=== PATIENT | female | born 1945 | race Caucasian/White ===

== ENCOUNTER 2020-12-01 10:28 | Inpatient (IN) | payer MEDICARE, BC ==
[~2020-12-01] VITALS: Ht 160 cm; Wt 67.0 kg
[2020-12-01] MEDS ORDERED: hydrALAZINE 20 MG/ML VIAL. IV ONE (11:00)
--- NOTE | 2020-12-01 11:20 | RAD ---
EXAM: XR CHEST 1V 12/01/2020 10:56 AM CLINICAL INDICATION: Chest COMPARISON: None TECHNIQUE: AP upright view of the chest FINDINGS: The heart and mediastinum are normal. Lungs are well-expanded. There is a 1.2 cm nodular opacity projecting over the left cardiac apex and left anterior sixth rib. The lungs otherwise clear. No pulmonary edema. No pleural effusion or pneumothorax. No acute osseous abnormality. IMPRESSION: 1. No acute abnormality. 2. 1.2 cm nodular opacity projecting over the left cardiac apex and anterior left sixth rib. This may be a superimposed structure such as costochondral degenerative changes, however a pulmonary nodule i s not excluded. Consider follow-up PA and lateral views of the chest, or CT to further evaluate. Electronically signed by: Alexandria Walker MD (12/01/2020 11:18 AM) [id number]
[2020-12-01 11:34] LABS: BASO % 1 % (0-3); EOS # 0.1 x10^3/uL (0.0-0.7); EOS % 2 % (0-3); HEMATOCRIT 42.9 % (36.0-47.0); LYMPH # 1.6 x10^3/uL (1.0-4.8); LYMPH % 26 % (24-48); MEAN CORPUSCULAR HEMOGLOBIN 32 pg (25-35); MEAN CORPUSCULAR HGB CONC 33 g/dL (31-37); MEAN CORPUSCULAR VOLUME 97 fL (79-100); MONO # 0.4 x10^3/uL (0.0-1.1); MONO % 6 % (0-9); NEUT # 4.1 x10^3uL (1.8-7.7); NEUT % 66 % (31-73); PLATELET COUNT 224 x10^3/uL (140-400); RED BLOOD COUNT 4.43 x10^6/uL (3.50-5.40); WHITE BLOOD COUNT 6.3 x10^3/uL (4.0-11.0)
--- NOTE | 2020-12-01 11:45 | PHYS DOC ---
Past History Past Medical History: Diabetes, GERD, Hypertension Past Surgical History: Other Additional Past Surgical Histo: cataract Alcohol Use: Rarely General Adult EDM: Chief Complaint: CHEST PAIN HPI: HPI: Patient is a 75-year-old female who presented to ER due to substernal chest pain started several days ago off and on. Patient WAS also feeling weak, her blood pressure was elevated. Patient has a history of diabetes, hypertension. Patient went to see her doctor today due to the chest pain and general weakness, her blood pressure was high in the clinic so she was sent here for further evaluation and treatment. Patient denies any cough or fever. Patient denies being exposed to anybody who tested positive for COVID-19. Review of Systems: Review of Systems: Constitutional: Denies fever or chills Eyes: Denies change in visual acuity HENT: Denies nasal congestion or sore throat Respiratory: Denies cough or shortness of breath Cardiovascular: Positive for chest pain, no edema GI: Denies abdominal pain, nausea, vomiting, bloody stools or diarrhea : Denies dysuria Musculoskeletal: Denies back pain or joint pain Integument: Denies rash Neurologic: Denies headache, focal weakness or sensory changes Endocrine: Denies polyuria or polydipsia Lymphatic: Denies swollen glands Psychiatric: Denies depression or anxiety Current Medications: Current Meds: Current Medications Medications (Trade) Dose Ordered Sig/Jaymie Start Time Stop Time Status Last Admin Dose Admin Hydralazine HCl (Apresoline) 10 mg 1X ONCE 12/01/20 11:00 12/01/20 11:01 DC 12/01/20 11:37 10 MG Allergies: Allergies: Allergies Coded Allergies Type Severity Reaction Last Updated Verified Penicillins Allergy Unknown 12/01/20 Yes Physical Exam: PE: Constitutional: Well developed, well nourished, no acute distress, non-toxic appearance. [] HENT: Normocephalic, atraumatic, bilateral external ears normal, oropharynx moist, no oral exudates, nose normal. [] Eyes: PERRLA, EOMI, conjunctiva normal, no discharge. [] Neck: Normal range of motion, no tenderness, supple, no stridor. [] Cardiovascular:Heart rate regular rhythm, no murmur [] Lungs & Thorax: Bilateral breath sounds clear to auscultation [] Abdomen: Bowel sounds normal, soft, no tenderness, no masses, no pulsatile masses. [] Skin: Warm, dry, no erythema, no rash. [] Back: No tenderness, no CVA tenderness. [] Extremities: No tenderness, no cyanosis, no clubbing, ROM intact, no edema. [] Neurologic: Alert and oriented X 3, normal motor function, normal sensory function, no focal deficits noted. [] Psychologic: Affect normal, judgement normal, mood normal. [] Current Patient Data: Vital Signs: Vital Signs Date Time Temp Pulse Resp B/P (MAP) Pulse Ox O2 Delivery O2 Flow Rate FiO2 12/01/20 11:37 196/94 (128) 12/01/20 11:37 62 12/01/20 10:35 98.2 18 99 Room Air EKG: EKG: EKG was done at 1053, heart rate of 64 bpm, normal sinus rhythm, no ST segment elevation. Radiology/Procedures: Radiology/Procedures: [][place] [address] IMAGING REPORT Signed PATIENT: FOZIA CHANDRA AACCOUNT: [id number] : 1945 LOCATION: ER AGE: 75 SEX: F EXAM STATUS: PRE ER ORD. PHYSICIAN: GRACE NEAL DO REASON: CHEST PAIN PROCEDURE: PORTABLE CHEST 1V EXAM: XR CHEST 1V 12/01/2020 10:56 AM CLINICAL INDICATION: Chest COMPARISON: None TECHNIQUE: AP upright view of the chest FINDINGS: The heart and mediastinum are normal. Lungs are well-expanded. There is a 1.2 cm nodular opacity projecting over the left cardiac apex and left anterior sixth rib. The lungs otherwise clear. No pulmonary edema. No pleural effusion or pneumothorax. No acute osseous abnormality. IMPRESSION: 1. No acute abnormality. 2. 1.2 cm nodular opacity projecting over the left cardiac apex and anterior left sixth rib. This may be a superimposed structure such as costochondral degenerative changes, however a pulmonary nodule is not excluded. Consider follow-up PA and lateral views of the chest, or CT to further evaluate. Electronically signed by: Alexandria Walker MD (12/01/2020 11:18 AM) [id number] DICTATED AND SIGNED BY: ALEXANDRIA WALKER MD DATE: 12/01/20 1115 CC: GRACE NEAL DO; JEMMA SHEEHAN MD ~MTH0 0 Heart Score: HEART Score for Chest Pain: HEART Score for Chest Pain Response (Comments) Value History Moderately Suspicious 1 ECG Nonspecific Repolarizatio 1 Age > 65 2 Risk Factors >3 Risk Factors or Hx CAD 2 Troponin < Normal Limit 0 Total 6 Risk Factors: Risk Factors: DM, Current or recent (<one month) smoker, HTN, HLP, family history of CAD, obesity. Risk Scores: Score 0 - 3: 2.5% MACE over next 6 weeks - Discharge Home Score 4 - 6: 20.3% MACE over next 6 weeks - Admit for Clinical Observation Score 7 - 10: 72.7% MACE over next 6 weeks - Early Invasive Strategies Course & Med Decision Making: Course & Med Decision Making Pertinent Labs and Imaging studies reviewed. (See chart for details) Patient is a 75-year-old female who presented to ER due to chest pain, her blood pressure was elevated. Patient was given medication in ER, her blood pressure improved to 153/88 with heart rate of 70, saturation 99% on room air. EKG and cardiac enzyme did not show any acute problem at this time. Patient will be admitted to hospital for further evaluation and treatment, discussed with hospitalist on-call Dr. LLANOS who agrees TO admit the patient. Maren Disclaimer: Maren Disclaimer: This electronic medical record was generated, in whole or in part, using a voice recognition dictation system. Departure Departure: Impression: Primary Impression: Chest pain Additional Impressions: Hypertension UTI (urinary tract infection) Disposition: ADMITTED INPT THIS HOSP Admitting Physician: Roberto Llanos Condition: STABLE Referrals: JEMMA SHEEHAN MD (PCP) GRACE NEAL DO Dec 01, 2020 11:45
[2020-12-01 11:46] LABS: CALCIUM 8.9 mg/dL (8.5-10.1); CREATININE 1.6 mg/dL (0.6-1.0); GFR 31.4; POTASSIUM 4.7 mmol/L (3.5-5.1)
[2020-12-01 11:50] LABS: BILIRUBIN,URINE NEG (NEG); CLARITY,URINE HAZY; COLOR,URINE YELLOW; GLUCOSE,URINE NEG (NEG); NITRITE,URINE NEG (NEG); UROBILINOGEN,URINE 0.2 mg/dL (0.2 mg/dL)
[2020-12-01 11:52] LABS: BACTERIA,URINE MOD /HPF (0-FEW); SQUAMOUS EPITHELIAL CELL,UR MOD /LPF; WBC,URINE >40 /HPF (0-4)
[2020-12-01 11:58] LABS: ALBUMIN 3.7 g/dL (3.4-5.0); ALBUMIN/GLOBULIN RATIO 1.2 (1.0-1.7); MAGNESIUM 1.6 mg/dL (1.8-2.4); TOTAL BILIRUBIN 0.4 mg/dL (0.2-1.0); TOTAL PROTEIN 6.8 g/dL (6.4-8.2)
[2020-12-01] MEDS ORDERED: ASPIRIN CHEWABLE 81 MG TABLET. PO ONE (13:45)
--- NOTE | 2020-12-01 15:39 | NUR ---
NURSING NOTE ADMIT PT ADMIT FROM ED TO ROOM 113 FOR DX OF HTN, UTI, AND CHEST PAIN. PT STATES HER DAUGHTER WILL BRING HER MED LIST. PT REPORTS ONLY MEDICAL HX OF DM, GERD, HTN, AND CATARACTS. PT STATES SHE HAS BEEN HAVING HIGH BLOOD PRESSURE SO CAME IN TO SEE THE DR. PT STATES SHE HAS GERD AND WAS TAKEN OFF HER MEDICATION AND OFF AND ON THIS WEEK HER CHEST FEELS LIKE "ITS ON FIRE" AND ISNT SURE IF ITS FROM BEING OFF HER GERD MEDICATION AND STATES TUMS ARE NOT WORKING. PT STATES SHE HAS PHLEGM IN HER MOUTH BUT IS NOT COUGHING. PT SETTLED IN ROOM. BERENICE MEHTA.
--- NOTE | 2020-12-01 15:42 | NUR ---
NURSING NOTE CONSULT CONSULT CARDIOLOGY CALLED FOR CHEST PAIN AND HTN. BERENICE MEHTA.
[2020-12-01 15:49] VITALS: BP 124/82
[2020-12-01] MEDS ORDERED: LISI40TA6 PO (15:57)
[2020-12-01] MEDS ORDERED: CARV25TA2 PO (15:57)
[2020-12-01] MEDS ORDERED: GABA-586 PO (15:57)
[2020-12-01] MEDS ORDERED: METF10007 PO (15:57)
[2020-12-01] MEDS ORDERED: ASPI-630 PO (15:57)
[2020-12-01] MEDS ORDERED: SIMV40TA18 PO (15:57)
--- NOTE | 2020-12-01 16:01 | EKG ---
[address] [address] Test Date: 2020-12-01 Test Time: 10:50:36 Pat Name: FOZIA CHANDRA Department: Room: Gender: F Marriage And Family Therapist: : 1945 Requested By: GRACE NEAL Order Number: [id number] Reading MD: Measurements Intervals [place] Rate: 64 P: 180 MN: 114 QRS: -12 QRSD: 96 T: 33 QT: 386 QTc: 402 Interpretive Statements SINUS RHYTHM LEFTWARD AXIS QRS(T) CONTOUR ABNORMALITY CONSISTENT WITH INFERIOR INFARCT PROBABLY OLD ABNORMAL ECG RI6.02 No previous ECG available for comparison
[2020-12-01] MEDS: CARVEDILOL 12.5 MG TABLET PO SCH (16:59)
[2020-12-01] MEDS: metFORMIN 500 MG TABLET PO SCH (16:59)
[2020-12-01 19:19] VITALS: BP 147/83
[2020-12-01] MEDS: GABAPENTIN 300 MG CAPSULE. PO SCH (19:54)
[2020-12-01] MEDS ORDERED: SIMVASTATIN 40 MG TABLET. PO SCH (21:00)
[2020-12-01 23:00] VITALS: BP 164/71
[2020-12-02 04:57] VITALS: BP 135/76
--- NOTE | 2020-12-02 06:47 | NUR ---
pt was in bed for assessment and med pass. pt had no complaints of chest pain this shift. pt is able to ambulate to toilet independently. pt is currently sleeping in bed. will continue to monitor.
--- NOTE | 2020-12-02 07:37 | PDOC2 ---
CHAGO FERREIRA AVA 12/02/20 0736: CARDIAC CONSULT DATE OF CONSULT DOS: DATE: 12/02/20 TIME: 07:31 REASON FOR CONSULT Reason for Consult chest pain REFERRING PHYSICIAN Referring Physician Dr Tr CANCINO History of Present Illness This is a 75 yo female who presented secondary to elevated blood pressure. Patient reports she just didnt feel well yesterday evening. Was a little nauseated and had a headache. Checked blood pressure and was noted in the 200 range so she decided to come to the ED for further evaluation and treatment. Reports blood pressure usually runs high, but not this high. Reports compliance with medications. Does reports some nasal congestion over the last couple of weeks. Has not been taking anything over the counter. Has a history of GERD and was taken off PPI last year. Over the 2 months, has been experiencing burning in her central chest every time she eats. Has been treating with TUMS. A couple of times in the last few weeks, has had some aching in her left chest and left arm. Only last for a short time and resolved without intervention. Usually occurs when she is just sitting. Does not occur with exertional activities. No associated dizziness, diaphoresis, palpitations, or shortness of breath. No previous cardiac workup. Follows with PCP, Dr. Lee. PAST MEDICAL HISTORY Cardiovascular: HTN, hyperipidemia Pulmonary: No pertinent hx CENTRAL NERVOUS SYSTEM: Periperal neuropathy GI: GERD Heme/Onc: No pertinent hx Hepatobiliary: No pertinent hx Psych: No pertinent hx Musculoskeletal: Osteoarthritis Rheumatologic: No pertinent hx Infectious disease: No pertinent hx ENT: No pertinent hx Renal/: Chronic renal insuff Endocrine: Diabetes PAST SURGICAL HISTORY Past Surgical History: Cataract Removal FAMILY HISTORY Family History: Diabetes, Hypertension SOCIAL HISTORY Smoke: No ALCOHOL: none Drugs: None Lives: with Family CURRENT MEDICATIONS Current Medications Current Medications Hydralazine HCl (Apresoline) 10 mg 1X ONCE IV Last administered on 12/01/20at 11:37; Start 12/01/20 at 11:00; Stop 12/01/20 at 11:01; Status DC Levofloxacin/ Dextrose 150 ml @ 100 mls/hr 1X ONCE IV Last administered on 12/01/20at 13:36; Start 12/01/20 at 13:45; Stop 12/01/20 at 15:14; Status DC Aspirin (Aspirin Chewable) 324 mg 1X ONCE PO ; Start 12/01/20 at 13:45; Stop 12/01/20 at 13:46; Status DC Aspirin (Aspirin Chewable) 81 mg DAILY PO ; Start 12/02/20 at 09:00 Gabapentin (Neurontin) 300 mg TID PO Last administered on 12/01/20at 19:54; Start 12/01/20 at 21:00 Simvastatin (Zocor) 40 mg QHS PO Last administered on 12/01/20at 19:54; Start 12/01/20 at 21:00 Carvedilol (Coreg) 25 mg BIDWMEALS PO Last administered on 12/01/20at 16:59; Start 12/01/20 at 17:00 Lisinopril (Prinivil) 40 mg DAILY PO ; Start 12/02/20 at 09:00 Metformin HCl (Glucophage) 1,000 mg BIDWMEALS PO Last administered on 12/01/20at 16:59; Start 12/01/20 at 17:00 Levofloxacin/ Dextrose 100 ml @ 100 mls/hr Q24H IV ; Start 12/02/20 at 12:00; Status UNV Levofloxacin/ Dextrose 50 ml @ 50 mls/hr Q24H IV ; Start 12/02/20 at 12:00 Active Scripts Active Reported Aspirin 81 Mg Tab.chew 81 Mg PO DAILY Simvastatin 40 Mg Tablet 1 Tab PO QHS Carvedilol 25 Mg Tablet 25 Mg PO BIDWMEALS Metformin Hcl 1,000 Mg Tablet 1 Tab PO BID Lisinopril 40 Mg Tablet 1 Tab PO DAILY Gabapentin (Gabapentin) 300 Mg Capsule 300 Mg PO TID ALLERGIES Allergies: Coded Allergies: Penicillins (Verified Allergy, Unknown, 12/01/20) ROS Review of Systems 14 point ROS conducted with pertinent positives noted above in HPI. PHYSICAL EXAM General: Alert, Oriented X3, Cooperative, No acute distress HEENT: Atraumatic Lungs: Clear to auscultation Heart: Regular rate Abdomen: Soft, No tenderness Extremities: No edema, Normal pulses Skin: No rashes, No breakdown Neuro: Normal speech, Sensation intact Psych/Mental Status: Mental status NL, Mood NL MUSCULOSKELETAL: Osteoarthritic changes both hands VITALS Vital Signs Vital Signs Date Time Temp Pulse Resp B/P (MAP) Pulse Ox O2 Delivery O2 Flow Rate FiO2 12/02/20 04:57 98.2 74 16 135/76 (95) 97 Room Air LABS LABS Laboratory Tests Test 12/01/20 10:57 12/01/20 11:00 12/01/20 13:45 12/01/20 16:24 Urine Collection Type Void Urine Color Yellow Urine Clarity Hazy Urine pH 6.5 Urine Specific [place] 1.015 Urine Protein Neg (NEG-TRACE) Urine Glucose (UA) Neg mg/dL (NEG) Urine Ketones (Stick) Neg mg/dL (NEG) Urine Blood Trace (NEG) Urine Nitrite Neg (NEG) Urine Bilirubin Neg (NEG) Urine Urobilinogen Dipstick 0.2 mg/dL (0.2 mg/dL) Urine Leukocyte Esterase Large (NEG) Urine RBC 1-2 /HPF (0-2) Urine WBC >40 /HPF (0-4) Urine Squamous Epithelial Cells Mod /LPF Urine Bacteria Mod /HPF (0-FEW) White Blood Count 6.3 x10^3/uL (4.0-11.0) Red Blood Count 4.43 x10^6/uL (3.50-5.40) Hemoglobin 14.0 g/dL (12.0-15.5) Hematocrit 42.9 % (36.0-47.0) Mean Corpuscular Volume 97 fL (79-100) Mean Corpuscular Hemoglobin 32 pg (25-35) Mean Corpuscular Hemoglobin Concent 33 g/dL (31-37) Red Cell Distribution Width 14.0 % (11.5-14.5) Platelet Count 224 x10^3/uL (140-400) Neutrophils (%) (Auto) 66 % (31-73) Lymphocytes (%) (Auto) 26 % (24-48) Monocytes (%) (Auto) 6 % (0-9) Eosinophils (%) (Auto) 2 % (0-3) Basophils (%) (Auto) 1 % (0-3) Neutrophils # (Auto) 4.1 x10^3uL (1.8-7.7) Lymphocytes # (Auto) 1.6 x10^3/uL (1.0-4.8) Monocytes # (Auto) 0.4 x10^3/uL (0.0-1.1) Eosinophils # (Auto) 0.1 x10^3/uL (0.0-0.7) Basophils # (Auto) 0.0 x10^3/uL (0.0-0.2) Sodium Level 142 mmol/L (136-145) Potassium Level 4.7 mmol/L (3.5-5.1) Chloride Level 105 mmol/L (98-107) Carbon Dioxide Level 28 mmol/L (21-32) Anion Gap 9 (6-14) Blood Urea Nitrogen 26 mg/dL (7-20) Creatinine 1.6 mg/dL (0.6-1.0) Estimated GFR (Cockcroft-Gault) 31.4 BUN/Creatinine Ratio 16 (6-20) Glucose Level 107 mg/dL (70-99) Calcium Level 8.9 mg/dL (8.5-10.1) Magnesium Level 1.6 mg/dL (1.8-2.4) Total Bilirubin 0.4 mg/dL (0.2-1.0) Aspartate Amino Transf (AST/SGOT) 14 U/L (15-37) Alanine Aminotransferase (ALT/SGPT) 18 U/L (14-59) Alkaline Phosphatase 54 U/L (46-116) Troponin I Quantitative < 0.017 ng/mL (0-0.055) < 0.017 ng/mL (0-0.055) VX-Mgg-Z-Type Natriuretic Peptide 2202 pg/mL (0-449) Total Protein 6.8 g/dL (6.4-8.2) Albumin 3.7 g/dL (3.4-5.0) Albumin/Globulin Ratio 1.2 (1.0-1.7) Lipase 258 U/L (73-393) Glucose (Fingerstick) 75 mg/dL (70-99) Test 12/01/20 16:59 12/01/20 19:59 12/01/20 22:31 Troponin I Quantitative < 0.017 ng/mL (0-0.055) < 0.017 ng/mL (0-0.055) Glucose (Fingerstick) 103 mg/dL (70-99) ASSESSMENT/PLAN Assessment/Plan 1. Chest pain, atypical. AMI ruled out 2. Accelerated hypertension; better controlled 3. Hyperlipidemia; statin 4. CKD 5. Diabetes, II 6. GERD; as per PCP 7. Hypomagnesemia Recommendations Lipids Replace K BP control; continue Coreg, lisinopril. Add amlodipine Continue ASA/statin therapy Given risk factors, will proceed with outpatient ischemic evaluation with stress test Follow up in our office with Dr. Dean as scheduled. JESSICA DEAN MD 12/02/20 1149: CARDIAC CONSULT ASSESSMENT/PLAN Assessment/Plan Pt. seen and examined. Agree with above DRAWER WAXER note. Supportive care. CHAGO FERREIRA APRN Dec 02, 2020 07:36 JESSICA DEAN MD Dec 02, 2020 11:49
[2020-12-02] MEDS: GABAPENTIN 300 MG CAPSULE. PO SCH ×2 (08:01→14:00)
[2020-12-02] MEDS: metFORMIN 500 MG TABLET PO SCH (08:02)
[2020-12-02] MEDS: CARVEDILOL 12.5 MG TABLET PO SCH (08:02)
[2020-12-02] MEDS ORDERED: MAGNESIUM SULFATE 2GM 50 ML IV ONE (08:30)
[2020-12-02] MEDS ORDERED: ASPIRIN CHEWABLE 81 MG TABLET. PO SCH (09:00)
[2020-12-02] MEDS ORDERED: amLODIPine BESYLATE 5 MG TABLET PO SCH (09:00)
[2020-12-02] MEDS ORDERED: LISINOPRIL 20 MG TABLET PO SCH (09:00)
[2020-12-02 10:16] VITALS: BP 133/74
[2020-12-02] MEDS ORDERED: AMLO-186 PO (13:22)
--- NOTE | 2020-12-02 14:02 | HP ---
ADMIT DATE: 12/01/2020 HISTORY OF PRESENT ILLNESS: The patient is a 75-year-old female patient who presented to the Emergency Room with chest pain that is substernal, started several days ago off and on. She was also feeling weak. Her blood pressure was elevated. She has a history of diabetes, hypertension. She went to see her doctor; and because of the complaint of chest pain and generalized weakness and her blood pressure was high in the clinic, so she was sent to the Emergency Room for evaluation and treatment. She denied any cough, phlegm, or hemoptysis. She denied any chills, rigors, or fever. She denies being exposed to anybody who tested positive for COVID-19. She was extensively investigated in the Emergency Room and has had an EKG, which showed that she was in sinus rhythm with a heart rate of [address] segment elevation. Her chest x-ray showed no acute abnormality. She has had lab work done and her first set of cardiac enzymes showed troponin to be less than 0.017 and, therefore, the patient was admitted to do two more sets of cardiac enzyme and to consult the cardiology team. PAST MEDICAL HISTORY: Significant for hypertension, hyperlipidemia, peripheral neuropathy, gastroesophageal reflux disease, generalized osteoarthritis, chronic renal insufficiency, and type 2 diabetes mellitus. PAST SURGICAL HISTORY: Significant for bilateral cataract extraction. FAMILY HISTORY: Positive for diabetes and hypertension. SOCIAL HISTORY: She lives with her family. She does not smoke, drink alcohol, or use any recreational drugs. ALLERGIES: SHE IS ALLERGIC TO PENICILLIN. MEDICATIONS: She is currently on simvastatin 40 mg p.o. at bedtime, carvedilol 25 mg twice a day with meals, lisinopril 40 mg once a day, aspirin 81 mg chewable tablet once a day, gabapentin 300 mg three times a day, metformin 1000 mg twice a day. REVIEW OF SYSTEMS: As per history of present illness. PHYSICAL EXAMINATION: GENERAL: On arrival to the Emergency Room, she looked well and was clearly in no apparent respiratory distress, slightly pale, but no jaundice, cyanosis, or thyromegaly. No jugular venous distension. No limb edema. VITAL SIGNS: Her heart rate was 72, blood pressure was 162/94, temperature was 98.2, respiratory rate was 16, and oxygen saturation was 97% on room air. HEAD, EYES, EARS, NOSE AND THROAT: Showed normocephalic, atraumatic. NECK: Supple. HEART: Normal first and second heart sounds. No gallop or murmur. CHEST: Clear to auscultation. No crepitation or rhonchi. ABDOMEN: Distended, soft, nontender. NEUROLOGIC: She was grossly intact. LABORATORY DATA: Showed a serum sodium 142, potassium 4.7, chloride 105, bicarbonate 28, anion gap of 9, BUN 26, creatinine 1.6, estimated GFR was 31 mL per minute. Her glucose 107, calcium was 8.9, magnesium was 1.6. Total bilirubin, AST, ALT, and alkaline phosphatase were normal. Her first cardiac enzymes showed troponin to be less than 0.017. Beta natriuretic peptide was 2200. Total protein 6.8, albumin 3.7. Serum lipase was normal. Urinalysis showed the urine was yellow, hazy, with a pH of 6.5, specific gravity 1.015 The urine was negative for protein, glucose, ketones, trace amount of blood, negative for nitrite and leukocyte esterase. There is large amount of leukocyte esterase. There are 1-2 rbc's, more than 40 wbc's, and moderate amount of bacteria. Her chest x-ray showed the heart and mediastinum are normal. Lungs are well expanded. There is 1.2 cm nodular opacity projecting over the left cardiac apex and left anterior sixth rib. The lungs are otherwise clear. No pulmonary edema, no pleural effusion or pneumothorax. No acute osseous abnormality. ASSESSMENT AND PLAN: The patient will be admitted, will have two more sets of cardiac enzyme. We will also consult the Cardiology team and decide the further management accordingly. WELLINGTON MARSHALL MD DR: PIPER/edwar JOB#: [id number] / [id number]
--- NOTE | 2020-12-02 14:38 | DS ---
DATE OF DISCHARGE: 12/02/2020 HOSPITAL COURSE: The patient is a 75-year-old female patient, who presented to the Emergency Room through her primary care physician's office with high blood pressure and chest pain as well as generalized weakness. She has had 3 sets of cardiac enzymes that ruled out myocardial infarction. She was seen in consultation by the solar installer technician and amlodipine was added and her blood pressure is much better controlled. A decision was made to discharge her home with arrangement for ischemic workup as an outpatient with a stress test and she will be followed up in Dr. Dean's office as scheduled. PHYSICAL EXAMINATION: GENERAL: When I saw her, she looked well and was clearly in no apparent respiratory distress. No pallor, jaundice, cyanosis or thyromegaly. No jugular venous distension. No limb edema. VITAL SIGNS: Her heart rate was 75, blood pressure was 133/74, temperature was 97.8, respiratory rate was 18 and oxygen saturation was 96%. The rest of clinical exam remained stable. The patient has had 3 sets of cardiac enzymes that ruled out myocardial infarction. Although her urinalysis was suggestive of UTI, her urine culture grew 40,000 colony forming units per mL of normal urogenital daly. The patient received 3 days of Levaquin. FINAL DISCHARGE DIAGNOSES: 1. Chest pain, myocardial infarction ruled out. 2. Gastroesophageal reflux disease. 3. Hypertension. 4. Hyperlipidemia. 5. Chronic kidney disease. 6. Diabetes. 7. Peripheral neuropathy. WELLINGTON MARSHALL MD DR: PIPER/edwar JOB#: [id number] / [id number]
--- NOTE | 2020-12-02 15:06 | NUR ---
Pt discharged at 1500 via ambulation accompanied by daughter home Verbal and written instructions given to pt with verbal understanding written prescriptions X2 given to pt
[2020-12-02 15:22] LABS: THYROID STIM HORMONE (TSH) 3.315 uIU/mL (0.358-3.740)
[2020-12-02] MEDS ORDERED: LACTOBACILLUS RHAMNOSUS GG 1 CAPSULE. PO SCH (21:00)
== END 2020-12-02 15:00 | disposition home or self-care (01) | DRG 392 ==
LOC: ER 10:28 → 1 SOUTH 13:20
PROVIDERS: ADMIT Hospitalist; ATTEND Hospitalist
DX: K21.9 Gastro-esophageal reflux disease without esophagitis (principal); N39.0 Urinary tract infection, site not specified; E11.22 Type 2 diabetes mellitus with diabetic chronic kidney disease; E78.5 Hyperlipidemia, unspecified; E83.42 Hypomagnesemia; G62.9 Polyneuropathy, unspecified; I12.9 Hypertensive chronic kidney disease with stage 1 through stage 4 chronic kidney disease, or unspecified chronic kidney disease; M15.9 Polyosteoarthritis, unspecified; N18.9 Chronic kidney disease, unspecified; Z82.49 Family history of ischemic heart disease and other diseases of the circulatory system; Z83.3 Family history of diabetes mellitus; Z98.41 Cataract extraction status, right eye; Z98.42 Cataract extraction status, left eye; Z88.0 Allergy status to penicillin
CPT/HCPCS: 36415; 71045; 80053; 80061; 81001; 82947; 83690; 83735; 83880; 84443; 84484; 85025; 87086; 93005; 96365; 96366; 96375; J0360; J1956; J3475; 99285-25

== ENCOUNTER → 2020-12-24 | Outpatient (CLI) | payer MEDICARE, BC ==
[2020-12-02 10:16] VITALS: BP 133/74
[~2020-12-24] MED LIST: AMLO-186 PO; ASPI-630 PO; CARV25TA2 PO; GABA-586 PO; LISI40TA6 PO; METF10007 PO; REGADENOSON 0.4 MG/5 ML DISP.SYRIN. IV ONE; SIMV40TA18 PO
--- NOTE | 2020-12-24 11:36 | RAD ---
MR#: [id number] Date of Study: 12/24/2020 Ordering Physician: JESSICA DUFFY, Referring Physician: ODILON CHANG Tech: RT Kaylyn TurpinR) (N) APPROVED REPORT Test Type: Pharmacological Stress Nurse/Tech: RT Dyana (Christel) (N) Test Indications: chest pain, hypertension Cardiac History: diabetic, hypertension Medications: see EHR Medical History: see EHR Resting ECG: sinus rhythm Resting Heart Rate: 58 bpm Resting Blood Pressure: 169/63mmHg Pretest Chest Pain: None Nurse/Tech Notes Consent: The procedure was explained to the patient in lay terms. Informed consent was witnessed. Misha eout was entered into [facility]. History and Stress Test performed by RT Krysten Turpin) (N) Pharm. Details Pharmacologic stress testing was performed using 0.4mg per 5ml of regadenoson given intravenously ove r 7-10 seconds. Stress Symptoms Dyspnea POST EXERCISE Reason for Termination: Infusion complete Max HR: 110 bpm Max Blood Pressure: 165/66mmHg INTERPRETATION Stress EKG Conclusion: Baseline EKG showed sinus rhythm. No ischemic changes at peak stress. No arr hythmias. Imaging Protocol IMAGE PROTOCOL: Rest Tc-99m/stress Tc-99m 1 day Rest: Stress: Viability: Radiopharm.Tc99m [id number] Sestamibi Dose10.1mCi 31.2mCi Duration 15min. 10min. Img Date 12/24/2020 12/24/2020 Inj-Img [id number]. 75min. Rest Admin Site:IV - Left AntecubitalAdministrator: RT Dyana (Christel)(N) Stress Admin Site: IV - Left AntecubitalAdministrator: RT Krysten Turpin)(N) STRESS DATA End Diast. Vol.65.0mlAv. Heart Rate62.0bpm End Syst. Vol.14.0mlCO Index BSA3.1L/min Myocardial Sgyz329.0gEject. Lomamlge00.0% Stress Rates Pk. Fill Rate2.60EDV/secLVtime Pk. Fill 247.26msec Pk. Empty Rate4.41ESV/secLVtime Pk. Wdqkt692.36msec 1/3 Pk. Fill1.17EDV/sec Stress Scores Regional WT1.00Summed WT12.00 Regional WM0.00Summed WM0.00 Study quality was good. Left Ventricular size was Normal at Rest and Stress. Lung uptake was . Left Ventricular ejection fraction is 75%. The rest and stress images show normal perfusion, normal contraction and thickening. LV Perf. Quant 17 Seg. SSS0.00 17 Seg. SRS0.00 17 Seg. SDS0.00 Stress Defect Extent (% LAD)0.00Rest Defect Extent (% LAD)0.00Rev. Defect Extent (% LAD)0.00 Stress Defect Extent (% LCX) 0.00Rest Defect Extent (% LCX)0.00Rev. Defect Extent (% LCX)0.00 Stress Defect Extent (% RCA)0.00Rest Defect Extent (% RCA)0.00Rev. Defect Extent (% RCA)0.00 Stress Defect Extent (% FREDDY)0.00Rest Defect Extent (% FREDDY)0.00Rev. Defect Extent (% FREDDY)0.00 Conclusion 1. Regadenoson cardioisotope stress test did not show any evidence of ischemia or infarct. 2. Normal left ventricular systolic function with ejection fraction calculated at 75%. 3. Low risk for cardiac events. Signed by : Adriel Augustine, Electronically Approved : 12/24/2020 11:36:00
== END ==
LOC: NM 07:34
PROVIDERS: ATTEND Internal Medicine Cardiovascular Disease
DX: R07.9 Chest pain, unspecified (principal); I10 Essential (primary) hypertension; E11.9 Type 2 diabetes mellitus without complications
CPT/HCPCS: 78452; 93017; A9500; J2785